=== PATIENT | male | born 1965 | race American Indian/Alaskan Native ===

== ENCOUNTER 2017-11-25 20:57 | Emergency (ER) | payer BC ==
[~2017-11-25] VITALS: Ht 175.3 cm; Wt 83.9 kg
[2017-11-25] MEDS ORDERED: LISINOPRIL20 MG (21:13)
[2017-11-25] MEDS ORDERED: ATIVAN1 M1 (21:13)
[2017-11-25] MEDS ORDERED: FENOFIBRATE40 MG (21:15)
== END 2017-11-25 23:52 | disposition home or self-care (01) ==
LOC: ER 20:57
DX: R07.89 Other chest pain (principal); F41.0 Panic disorder [episodic paroxysmal anxiety]